=== PATIENT | male | born 1970 | race Asian ===

== ENCOUNTER 2017-03-10 15:00 | Emergency (ER) | payer MEDICAID ==
[~2017-03-10] VITALS: Ht 167.6 cm; Wt 82.0 kg
[2017-03-10] MEDS ORDERED: METF500T4 PO (15:46)
[2017-03-10] MEDS ORDERED: CHOLESTEROL MED PO (15:46)
[2017-03-10] MEDS ORDERED: ANTIHYPERTENSIVE PO (15:46)
[2017-03-10] MEDS ORDERED: SODIUM CHLORIDE FLUSH 10ML SYR IVF ONE (16:00)
[2017-03-10] MEDS ORDERED: SODIUM CHLORIDE 0.9% 1,000ML IVBOLUS ONE (16:00)
[2017-03-10 16:01] LABS: ASPARTATE AMINO TRANSFERASE 26 U/L (15-37); BLOOD UREA NITROGEN 9 mg/dL (7-18)
[2017-03-10 16:41] VITALS: BP 111/68
== END 2017-03-10 16:49 | disposition home or self-care (01) ==
LOC: ED 16:43
DX: R10.2 Pelvic and perineal pain (principal); E78.00 Pure hypercholesterolemia, unspecified; E11.9 Type 2 diabetes mellitus without complications
CPT/HCPCS: 36415; 80053; 81003; 83690; 85025; 99284